=== PATIENT | female | born 1970 | race Hispanic/Latino ===

== ENCOUNTER 2016-12-24 21:08 | Emergency (ER) | payer OTHER ==
[2016-12-24 21:16] VITALS: RESP 18; TEMP 98.1; BMI 27.8
[2016-12-24] MEDS ORDERED: Sodium Chloride 0.9% 1,000 ML IV STA (21:44)
[2016-12-24] MEDS ORDERED: Morphine 4 mg/ml ISec IVP STA (21:46)
[2016-12-24 21:53] LABS: ADD MANUAL DIFF? NO
[2016-12-24 22:12] LABS: BASO # 0.02 K/mm3 (0.0-2.0); BASO % 0.4 % (0.0-3.0); EOS # 0.1 (0.0-0.7); EOS % 1.5 % (1.5-5.0); GRAN # 2.13 (1.4-6.5); GRAN % 45.4 % (50.0-68.0); HEMATOCRIT 41.3 % (36.0-48.0); LYMPH # 2.2 (1.2-3.4); LYMPH % 47.4 % (22.0-35.0); MEAN CORPUSCULAR HEMOGLOBIN 31.8 pg (25.0-35.0); MEAN CORPUSCULAR HGB CONC 35.4 g/dl (31.0-37.0); MEAN PLATELET VOLUME 11.2 fl (7.0-11.0); MONO # 0.3 (0.1-0.6); MONO % 5.3 % (1.0-6.0); PLATELET COUNT 229 10^3/uL (120.0-450.0); WHITE BLOOD COUNT 4.7 10^3/ul (4.5-11.0)
[2016-12-24] MEDS ORDERED: HYDROmorphone 1 mg/ml ISec IVP STA ×2 (22:19→23:37)
[2016-12-24 22:24] LABS: ALB/GLOB RATIO 1.4 (1.1-1.8); ALKALINE PHOSPHATASE 52 U/L (38-133); ALT/SGPT 34 U/L (7-56); AMYLASE 44 U/L (35-125); AST/SGOT 22 U/L (15-39); BILIRUBIN,TOTAL 0.6 mg/dL (0.2-1.3); BLOOD UREA NITROGEN 8 mg/dL (7-21); CALCIUM 9.3 mg/dL (8.4-10.5); CARBON DIOXIDE 28 mmol/L (21-33); CHLORIDE 101 mmol/L (98-107); GFR AFRICAN-AMERICAN > 60; GLUCOSE,RANDOM 90 mg/dL (70-110); LIPASE 35 U/L (23-300); POTASSIUM 3.6 mmol/L (3.6-5.0); SODIUM 138 mmol/L (132-148); TOTAL PROTEIN 7.3 g/dL (5.8-8.3)
[2016-12-24 23:16] LABS: URINE BILIRUBIN NEGATIVE (NEGATIVE); URINE BLOOD TRACE-LYSED (NEGATIVE); URINE GLUCOSE (UA) NEGATIVE (NEGATIVE); URINE KETONE NEGATIVE (NEGATIVE); URINE LEUKOCYTE ESTERASE NEGATIVE Leu/uL (NEGATIVE); URINE PROTEIN NEGATIVE mg/dL (<30 mg/dL); URINE UROBILINOGEN 0.2 E.U./dL (<1 E.U./dL)
[2016-12-24 23:17] LABS: URINE APPEARANCE CLEAR (CLEAR); URINE COLOR STRAW (YELLOW)
[2016-12-24 23:22] LABS: URINE BACTERIA NEG (NEG); URINE EPITHELIAL CELLS 0 - 2 /hpf (0-5); URINE RBC NEGATIVE /hpf (0-2); URINE WBC NEGATIVE /hpf (0-6)
[2016-12-24 23:59] VITALS: O2SAT 95
[2016-12-25] MEDS ORDERED: HYDROmorphone 0.5 mg/0.5 ml ISec IVP STA (01:03)
--- NOTE | 2016-12-25 01:25 | ED PDOC ---
Arrival/HPI - General Chief Complaint: Abdominal Pain Time Seen by Provider: 12/24/16 21:40 Historian: Patient - History of Present Illness Narrative History of Present Illness (Text): 12/25/16 01:06 46-year-old female with left-sided upper abdominal pain that started at 7 PM today. Patient with a history of pancreatitis in the past is concerned that her pancreatitis has returned. She denies alcohol abuse. Denies smoking. Patient states she has a history of chronic back pain for which she takes a fentanyl patch. Patient denies chest pain or shortness of breath. Denies urinary symptoms. No vomiting or diarrhea. No headaches dizziness or weakness. Time/Duration: Prior to Arrival Symptom Onset: Sudden Symptom Course: Unchanged Quality: Stabbing Severity Level: 10 Past Medical History - Provider Review Nursing Documentation Reviewed: Yes - Travel History Have you recently traveled outside [place] w/in the past 3 mons?: No - Tetanus Immunization Tetanus Immunization: Unknown - Cardiac Hx Cardiac Disorders: No - Pulmonary Hx Respiratory Disorders: No - Neurological Hx Neurological Disorder: No - HEENT Hx HEENT Disorder: No - Renal Hx Renal Disorder: No - Endocrine/Metabolic Hx Endocrine Disorders: No - Hematological/Oncological Hx Blood Disorders: No - Integumentary Hx Dermatological Disorder: No - Musculoskeletal/Rheumatological Hx Musculoskeletal Disorders: No - Gastrointestinal Hx Gastrointestinal Disorders: Yes Hx Colitis: Yes Hx Pancreatitis: Yes - Genitourinary/Gynecological Hx Genitourinary Disorders: No - Psychiatric Hx Psychophysiologic Disorder: No Hx Substance Use: No - Surgical History Hx Appendectomy: Yes Hx Cholecystectomy: Yes Hx Hysterectomy: Yes Hx Orthopedic Surgery: Yes - Anesthesia Hx Anesthesia Reactions: No Hx Malignant Hyperthermia: No - Suicidal Assessment Feels Threatened In Home Enviroment: No Family/Social History - Physician Review Nursing Documentation Reviewed: Yes Family/Social History: Unknown Family HX Smoking Status: Former Smoker Hx Alcohol Use: No Hx Substance Use: No Allergies/Home Meds Allergies/Adverse Reactions: Allergies aspirin Allergy (Severe, Verified 12/31/15 11:30) ANAPHYLAXIS iodine Allergy (Intermediate, Verified 12/31/15 11:30) URTICARIA/SWELLING shrimp Allergy (Intermediate, Verified 12/31/15 11:31) URTICARIA/SWELLING Home Medications: Home Meds Medication Instructions Recorded Confirmed Fentanyl Citrate [Fentanyl] 1 patch TD .EVERY 72 HOURS 12/06/15 01/01/16 Lansoprazole [Prevacid] 30 mg PO HS 12/31/15 01/01/16 clonazePAM [Klonopin] 0.5 mg PO HS 12/31/15 01/01/16 Review of Systems - Review of Systems Constitutional: absent: Fatigue, Fevers Respiratory: absent: SOB, Cough Cardiovascular: absent: Chest Pain, Palpitations Gastrointestinal: Abdominal Pain. absent: Constipation, Nausea, Vomiting Genitourinary Female: absent: Dysuria, Frequency, Hematuria Musculoskeletal: absent: Arthralgias, Back Pain, Neck Pain Skin: absent: Rash, Pruritis Neurological: absent: Headache, Dizziness Psychiatric: absent: Anxiety, Depression Physical Exam Vital Signs Reviewed: Yes Vital Signs Temp Pulse Resp BP Pulse Ox 12/25/16 01:33 77 18 134/89 95 12/24/16 23:59 98.1 F 79 18 126/88 95 12/24/16 23:40 146/89 12/24/16 21:14 98.1 F 91 H 18 136/102 H 98 Temperature: Afebrile Blood Pressure: Hypertensive Pulse: Regular Respiratory Rate: Normal Appearance: Positive for: Well-Appearing, Non-Toxic, Uncomfortable Pain Distress: Mild Mental Status: Positive for: Alert and Oriented X 3 - Systems Exam Head: Present: Atraumatic Mouth: Present: Moist Mucous Membranes Neck: Present: Normal Range of Motion Respiratory/Chest: Present: Clear to Auscultation, Good Air Exchange. No: Respiratory Distress, Accessory Muscle Use Cardiovascular: Present: Regular Rate and Rhythm, Normal S1, S2. No: Murmurs Abdomen: Present: Tenderness (+ luq tenderness), Normal Bowel Sounds. No: Distention, Peritoneal Signs, Rebound, Guarding, McBurney's Point Tender Back: Present: Normal Inspection Upper Extremity: Present: Normal Inspection Lower Extremity: Present: Normal Inspection Neurological: Present: GCS=15 Skin: Present: Warm, Dry, Normal Color. No: Rashes Psychiatric: Present: Alert, Oriented x 3 Medical Decision Making ED Course and Treatment: 12/25/16 01:08 Patient is nontoxic well appearing with stable vital signs presenting with severe left upper quadrant abdominal pain CBC within normal limits CMP within normal limits Amylase within normal limits Lipase within normal limits Urinalysis blood CAT scan: FINDINGS: Lower thorax: Atelectasis right base. Vascular calcifications including coronary artery calcifications. ABDOMEN: Liver: Mild fatty liver. Low-density structures in the liver appear overall similar to the prior study. Gallbladder and bile ducts: Cholecystectomy. Bile duct is stable probably due to cholecystectomy and reservoir effect. Pancreas: Unremarkable. No ductal dilation. Spleen: Unremarkable. No splenomegaly. Adrenals: Unremarkable. No mass. Kidneys and ureters: Unremarkable. No obstructing stones. No hydronephrosis. Stomach and bowel: Mild/moderate fecal retention. Appendix: Reported appendectomy. PELVIS: Bladder: Unremarkable. No stones. Reproductive: Hysterectomy. ABDOMEN and PELVIS: Intraperitoneal space: Unremarkable. No free air. No significant fluid collection. Bones/joints: degenerative change in the lower lumbar spine. No acute fracture. No dislocation. Soft tissues: Unremarkable. Vasculature: Unremarkable. No abdominal aortic aneurysm. Lymph nodes: Unremarkable. No enlarged lymph nodes. IMPRESSION: 1. Cholecystectomy. 2. Mild fatty liver. 3. Mild/moderate fecal retention. 4. Hysterectomy. 5. Reported appendectomy. cxr; wnl Patient reassessment: after multiple doses of medications; pt with improvement in symptoms; offered patient admission to the hospital for abdominal pain; pt states she wants to go home. pt states her mother will pick her up. Discussed all results with patient in depth, stressed importance of f/u with pmd. advised stool softener, and increasing fluids. Impression: Abdominal pain tylenol every 4 hours as needed for pain Follow up with primary care physician within the next 2 days Follow up with the GI doctor within the next 2 days. Return immediately if symptoms worsen persist or if new symptoms develop: High fevers, increasing pain, vomiting, diarrhea or any other concerning symptoms develop - Lab Interpretations Lab Results: 12/24/16 21:40 12/24/16 22:00 Lab Results 12/24/16 23:07: Urine Color Straw, Urine Appearance Clear, Urine pH 7.0, Ur Specific [place] <= 1.005, Urine Protein Negative, Urine Glucose (UA) Negative, Urine Ketones Negative, Urine Blood Trace-lysed H, Urine Nitrate Negative, Urine Bilirubin Negative, Urine Urobilinogen 0.2, Ur Leukocyte Esterase Negative , Urine RBC Negative, Urine WBC Negative, Ur Epithelial Cells 0 - 2, Urine Bacteria Neg 12/24/16 22:00: Sodium 138, Potassium 3.6, Chloride 101, Carbon Dioxide 28, Anion Gap 13, BUN 8, Creatinine 0.6, Est GFR ( Amer) > 60, Est GFR (Non- Af Amer) > 60, Random Glucose 90, Calcium 9.3, Total Bilirubin 0.6, AST 22, ALT 34, Alkaline Phosphatase 52, Total Protein 7.3, Albumin 4.2, Globulin 3.1, Albumin/Globulin Ratio 1.4, Amylase 44, Lipase 35 12/24/16 21:40: WBC 4.7 D, RBC 4.59, Hgb 14.6, Hct 41.3, MCV 90.0, MCH 31.8, MCHC 35.4, RDW 13.0, Plt Count 229, MPV 11.2 H, Gran % 45.4 L, Lymph % (Auto) 47.4 H, Lane % (Auto) 5.3, Eos % (Auto) 1.5, Baso % (Auto) 0.4, Gran # 2.13, Lymph # 2.2, Lane # 0.3, Eos # 0.1, Baso # 0.02 - RAD Interpretation Radiology Orders: 12/24/16 21:45 ABD & PELVIS W/O PO OR IV CONT [CT] Stat 12/24/16 22:28 CHEST PORTABLE [RAD] Stat - Medication Orders Current Medication Orders: Discontinued Medications Hydromorphone HCl (Dilaudid) 1 mg IVP STAT STA Stop: 12/24/16 22:20 Last Admin: 12/24/16 22:32 Dose: 1 mg Re-Assess: [facility] Pain Assessment Document 12/24/16 23:32 EKEOO (Rec: 12/25/16 01:14 [email or web address] [id number]) Pain Reassessment Is this a pain reassessment? No Sleep Is patient sleeping during reassessment? No Presence of Pain Presence of Pain No Hydromorphone HCl (Dilaudid) 1 mg IVP STAT STA Stop: 12/24/16 23:38 Last Admin: 12/24/16 23:42 Dose: 1 mg Re-Assess: [facility] Pain Assessment Document 12/25/16 00:42 EKEOO (Rec: 12/25/16 01:23 EKEOO [id number]) Pain Reassessment Is this a pain reassessment? Yes Sleep Is patient sleeping during reassessment? No Presence of Pain Presence of Pain No Hydromorphone HCl (Dilaudid) 0.5 mg IVP STAT STA Stop: 12/25/16 01:04 Last Admin: 12/25/16 01:17 Dose: 0.5 mg Sodium Chloride (Sodium Chloride 0.9%) 1,000 mls @ 999 mls/hr IV .Q1H1M STA Stop: 12/24/16 22:44 Last Admin: 12/24/16 22:04 Dose: 999 mls/hr Morphine Sulfate (Morphine) 4 mg IVP STAT STA Stop: 12/24/16 21:47 Last Admin: 12/24/16 22:03 Dose: 4 mg Re-Assess: ABDIAS Pain Assessment Document 12/24/16 23:03 EKEOO (Rec: 12/25/16 01:14 [email or web address] [id number]) Pain Reassessment Is this a pain reassessment? No Sleep Is patient sleeping during reassessment? No Presence of Pain Presence of Pain Yes Disposition/Present on Arrival - Present on Arrival Any Indicators Present on Arrival: No History of DVT/PE: No History of Uncontrolled Diabetes: No Urinary Catheter: No History of Decub. Ulcer: No History Surgical Site Infection Following: None - Disposition Have Diagnosis and Disposition been Completed?: Yes Diagnosis: Abdominal pain Disposition: HOME/ ROUTINE Disposition Time: 01:25 Patient Plan: Discharge Patient Problems: Current Active Problems Problem Status Onset Abdominal pain Acute Condition: GOOD Discharge Instructions (ExitCare): Acute Abdominal Pain (ED) Additional Instructions: tylenol every 4 hours as needed for pain Follow up with primary care physician within the next 2 days Follow up with the GI doctor within the next 2 days. Return immediately if symptoms worsen persist or if new symptoms develop: High fevers, increasing pain, vomiting, diarrhea or any other concerning symptoms develop Referrals: Allyn TAYLOR,MD Dolores [Medical Doctor] - Follow up with primary Connor Ash DO [Staff Provider] - Follow up with primary Forms: WORK NOTE
[2016-12-25 01:34] VITALS: BP 134/89; PULSE 77
--- NOTE | 2016-12-25 08:54 | RAD ---
HISTORY: abdominal pain COMPARISON: No prior. FINDINGS: LUNGS: No active pulmonary disease. PLEURA: No significant pleural effusion identified, no pneumothorax apparent. CARDIOVASCULAR: Normal. OSSEOUS STRUCTURES: No significant abnormalities. VISUALIZED UPPER ABDOMEN: Normal. OTHER FINDINGS: None. IMPRESSION: No active disease.
--- NOTE | 2016-12-25 09:12 | CT ---
PROCEDURE: CT Abdomen and Pelvis without intravenous contrast HISTORY: Left sided ABDOMINAL PAIN COMPARISON: 04/30/2016 TECHNIQUE: Without contrast.. Contrast Dose: 0 Radiation dose: Total exam DLP = 431.39 mGy-cm. This CT exam was performed using one or more of the following dose reduction techniques: Automated exposure control, adjustment of the mA and/or kV according to patient size, and/or use of iterative reconstruction technique. FINDINGS: LOWER THORAX: No infiltrate. 5 mm nodule seen in right middle lobe abutting the minor fissure, possibly intrapulmonary lymph node. No followup required as per Fleischner society criteria. . LIVER: Hepatomegaly. The liver measures 22 cm craniocaudal. Diffusely diminished attenuation consistent with fatty infiltration. . Numerous nonspecific low-attenuation lesions throughout the liver. No significant change from prior CT examination. No biliary ductal dilatation. GALLBLADDER AND BILE DUCTS: Status post cholecystectomy. Dilated common bile duct up to 11 mm, likely related to prior cholecystectomy. PANCREAS: Unremarkable. No gross lesion or ductal dilatation. SPLEEN: Unremarkable. ADRENALS: Unremarkable. No mass. KIDNEYS AND URETERS: Unremarkable. No hydronephrosis. No solid mass. VASCULATURE: Unremarkable. No aortic aneurysm. BOWEL: No bowel obstruction. No abnormal bowel loops identified. APPENDIX: Reported prior appendectomy. PERITONEUM: Unremarkable. No free fluid. No free air. LYMPH NODES: Unremarkable. No enlarged lymph nodes. BLADDER: Unremarkable. REPRODUCTIVE: Status post hysterectomy BONES: No fracture. Degenerative disc disease at L5-S1. OTHER FINDINGS: None. IMPRESSION: No acute abnormality. Hepatomegaly with fatty infiltration. Multiple nonspecific low-attenuation lesions in the liver unchanged grossly from prior contrast CT examination of 04/30/2016. Cholecystectomy. Dilated CBD likely related to prior cholecystectomy. No associated intrahepatic biliary dilatation. Hysterectomy. Appendectomy. No evidence of bowel obstruction or diverticulitis. Preliminary interpretation of this examination was reported by Regalii at 11:46 p.m. on 12/24/2016. There is concurrence of this report with the preliminary interpretation.
--- NOTE | 2016-12-25 11:56 | CARD ---
APPROVED REPORT EKG Measurement Heart [id number] NM [id number] <Conclusion> Normal sinus rhythm Normal ECG
== END 2016-12-25 02:09 | disposition home or self-care (01) ==
LOC: ED 21:08
DX: R10.12 Left upper quadrant pain (principal)
CPT/HCPCS: 71010; 74176; 80053; 81001; 82150; 83690; 85025; 93005; 96374; 96375; 96376; 99283; J1170; J2270; J7040